=== PATIENT | female | born 1980 | race American Indian/Alaskan Native ===

== ENCOUNTER 2017-10-16 13:12 | Day surgery (SDC) | payer MEDICAID ==
--- NOTE | 2017-10-16 14:24 | Anesthesia Consultation ---
Anesthesia Consult and Med Hx Date of service: 10/16/17 - Airway Anesthetic Teeth Evaluation: Good ROM Head & Neck: Adequate Mental/Hyoid Distance: Adequate Mallampati Class: Class II Intubation Access Assessment: Good - Pulmonary Exam CTA: Yes - Cardiac Exam Cardiac Exam: RRR - Pre-Operative Health Status ASA Pre-Surgery Classification: ASA2 Proposed Anesthetic Plan: MAC - Hematic Hx Anemia: No - Other Systems Hx Alcohol Use: No Hx Obesity: Yes
--- NOTE | 2017-10-16 14:24 | Anesthesia Day of Surgery ---
Anesthesia Day of Surgery - Day of Surgery Patient Examined: Yes Patient H&P Reviewed: Yes Patient is NPO: Yes
[2017-10-16] MEDS ORDERED: DIPRIVAN 10 MG/ML IV ONE ×3 (14:25→14:26)
--- NOTE | 2017-10-16 14:33 | History and Physical Report ---
History of Present Illness Date of examination: 10/16/17 Date of admission: 10/16/2017 Chief complaint: Epigastric pain, gastrointestinal bleeding History of present illness: 37-year-old female who presented history of diffuse abdominal pain, change in bowel habits and nausea and suspicion of gastrointestinal bleeding. Patient now presents for evaluation with an upper endoscopy. Patient has blood in stool. Past History Past Medical History: GERD Past Surgical History: No surgical history Social history: alcohol abuse. denies: smoking Medications and Allergies Allergies Allergy/AdvReac Type Severity Reaction Status Date / Time No Known Allergies Allergy Verified 10/16/17 14:18 Active Meds: Active Medications Sodium Chloride (Nacl 0.9% 1000 Ml) 1,000 mls @ 75 mls/hr IV DIRECT MEHREEN Last Admin: 10/16/17 14:00 Dose: 75 mls/hr Review of Systems All systems: negative Exam - Constitutional Vitals: Temp Pulse Resp BP Pulse Ox 99.0 F 75 12 120/82 100 10/16/17 14:00 10/16/17 14:00 10/16/17 14:00 10/16/17 14:00 10/16/17 14:00 General appearance: Present: no acute distress, well-nourished - EENT Eyes: Present: PERRL ENT: hearing intact, clear oral mucosa - Neck Neck: Present: supple, normal ROM - Respiratory Respiratory effort: normal Respiratory: bilateral: CTA - Cardiovascular Heart Sounds: Present: S1 & S2. Absent: rub, click - Extremities Extremities: pulses symmetrical, No edema Peripheral Pulses: within normal limits - Abdominal General gastrointestinal: Present: soft, non-tender, non-distended, normal bowel sounds Female genitourinary: Present: normal - Integumentary Integumentary: Present: clear, warm, dry - Musculoskeletal Musculoskeletal: gait normal, strength equal bilaterally - Psychiatric Psychiatric: appropriate mood/affect, intact judgment & insight - Neurologic Neurologic: CNII-XII intact, moves all extremities Assessment and Plan Abdominal pain, nausea, suspicion of GI bleed Plan: An upper endoscopy as well as a colonoscopy will be done to evaluate patient. Additional recommendations will be made depending on the endoscopic findings.
[2017-10-16] MEDS ORDERED: NACL 0.9% 1000 ML 1,000 ML IV SCH (15:00)
--- NOTE | 2017-10-16 15:46 | Post Anesthesia Evaluation ---
- Post Anesthesia Evaluation Patient Participated: Yes Airway Patent: Yes Stable Respiratory Function: Yes Temp > 96.8F: Yes Pain Manageable: Yes Adequeate Hydration: Yes Anesthesia Complications: No
--- NOTE | 2017-10-16 16:00 | Operative Report ---
Operative Report Operative Report: Date of procedure: 10/16/2017 Procedure: Colonoscopy with Biopsies. Attending physician: Christophe Akhtar MD Bindery Leadperson: Christophe Akhtar MD Indication: Patient is a 37-year-old female who presents with diffuse abdominal pain and rectal bleeding. A colonoscopy serves to evaluate patient so that treatment may be directed based on the findings. Consent: Informed consent was obtained after advising the patient and family regarding nature of this procedure, its indications, potential benefits as well as possible complications including but not limited to bleeding perforation and adverse reaction to medication, infection as well as other cardiopulmonary complications. An informed written and verbal consent was then obtained after due opportunity was provided for questions and answers. Monitoring: Patient was monitored continuously with pulse oximetry and electrocardiographic recordings as well as blood pressure recordings. Vital signs remained stable throughout this procedure with no untoward events. Preoperative assessment: Patient was assessed immediately prior to this procedure for capacity to tolerate monitored anesthesia care and moderate sedation as well as general anesthesia. Patient's ASA classification is 2, Mallampati class is 2, Hyomental distance is 3. Instrument: [employer] video colonoscope Medications: Propofol given intravenously in divided doses. For details please refer to anesthesia records. Description of procedure: Patient was placed in the left lateral decubitus position after achieving sedation, a digital rectal examination was performed following which the colonoscope was introduced into the anal verge and advanced to the cecum which was identified by the cecal valve, the appendiceal orifice, as well as by the cecal strap and direct transillumination. The terminal ileum was then intubated for a distance of about 15 cm. The colonoscope was subsequently withdrawn with careful inspection of all mucosal surfaces. Patient tolerated this procedure well and was subsequently taken to the recovery room. The following findings were noted. Findings: Patient had multiple ulcers at the ileocecal valve junction, just before entrance into the colon. All ulcers were confined to this area. There was some mucosal edema and erosions seen again in this area. Several biopsies were then obtained from the distal terminal ileum/ileocecal valve for histopathology. The endoscopic significance of these ulcers is not clear. It is not entirely clear if these ulcers are related to taking non-steroidal which patient had taken periodically, or if these are inflammatory in origin. It should be noted however that other than these areas of ulceration in the terminal ileum/ileocecal valve area, the entirety of the examined segments of the terminal ileum otherwise appeared relatively normal. The areas of ulceration with surrounding mucosal edema was very focal and confined to the distal terminal ileum/ileocecal valve junction. The entirety of the colon appeared completely normal. On the retroflex view at the anal verge, patient had prominent internal hemorrhoids. Impression: Ulcers in the distal terminal ileum/ileocecal valve. Normal appearing colon. Internal hemorrhoids. Plan: Follow pathology report and direct additional treatment based on the pathology report. Observe patient clinically. Additional recommendations will be made therefore in clinical follow-up and also on the pathology report findings. High-fiber diet..
--- NOTE | 2017-10-16 16:19 | Discharge Summary ---
Short Stay Discharge Plan Activity: advance as tolerated Weight Bearing Status: Weight Bear as Tolerated Diet: regular Additional Instructions: Post Sedation D/C Instructions When you return home you may resume your regular diet unless otherwise directed. -Go directly home from the hospital and rest quietly. You may resume normal activities tomorrow. -Do NOT drive, return to work, operate any machinery or make any important personal or business decisions today. -Do NOT drink any alcohol or take nerve or sleeping drugs. They add to the effects of the medicine still present in your body.
[2017-10-16 16:24] VITALS: BP 130/80
--- NOTE | 2017-10-16 16:24 | Operative Report ---
Operative Report Operative Report: Date of procedure: 10/16/2017 Procedure: Esophagogastroduodenoscopy with multiple mucosal biopsies Attending physician: Christophe Akhtar MD Barrel Burner: Christophe Akhtar MD Indication: Patient is a 37-year-old female who presented history of abdominal pain predominantly midepigastric and periumbilical with also seated melena. An upper endoscopy is done to evaluate patient so that treatment may be directed based on the findings. Consent: Informed consent was obtained after advising the patient and family regarding nature of this procedure, its indications, potential benefits as well as possible complications including but not limited to bleeding perforation and adverse reaction to medication, infection as well as other cardiopulmonary complications. An informed written and verbal consent was then obtained after due opportunity was provided for questions and answers. Monitoring: Patient was monitored continuously with pulse oximetry and electrocardiographic recordings as well as blood pressure recordings. Vital signs remained stable throughout this procedure with no untoward events. Preoperative assessment: Patient was assessed immediately prior to this procedure for capacity to tolerate monitored anesthesia care and moderate sedation as well as general anesthesia. Patient's ASA classification is 2, Mallampati class is 2, Hyomental distance is 3. Instrument: [employer] video endoscope Medications: Propofol, given intravenously in divided doses. For details please refer to anesthesia records. Description of procedure: Patient was placed in the left lateral decubitus position after achieving sedation, the endoscope was introduced into the esophagus under direct vision. It was then advanced beyond the esophagus into the stomach and then beyond the stomach into the duodenum and to the second portion of the duodenum. It was subsequently withdrawn with careful inspection of all mucosal surfaces with the following findings. Findings: Patient had mild erosive esophagitis involving the distal esophagus. There was a diminutive hiatal hernia seen on entry into stomach. There was erythema and a few erosions seen in the gastric antrum. Biopsies were obtained from the antrum to rule out gastritis. The duodenum was normal to the second portion. Impression: Mild erosive esophagitis. Small hiatal hernia. Mild gastric antral erythema with erosions. Plan: Continue treatment proton pump inhibitors Follow pathology report from the gastric antral biopsies Maintain antireflux measures. These findings may not entirely explain patient's presentation with melena. A colonoscopy is being done to assess patient further.
== END 2017-10-16 13:13 | disposition home or self-care (01) ==
LOC: GIO 13:12
PROVIDERS: ATTEND Internal Medicine Gastroenterology
DX: K92.1 Melena (principal); K63.3 Ulcer of intestine; K64.8 Other hemorrhoids; K20.9 Esophagitis, unspecified; K44.9 Diaphragmatic hernia without obstruction or gangrene; K29.50 Unspecified chronic gastritis without bleeding; E66.9 Obesity, unspecified; Z68.33 Body mass index [BMI] 33.0-33.9, adult
CPT/HCPCS: 43239; 45380; 81025; 88305; 88342; J2704; J7030

== ENCOUNTER 2019-11-25 11:58 | Day surgery (SDC) | payer MEDICAID ==
--- NOTE | 2019-11-25 13:21 | Anesthesia Consultation ---
Anesthesia Consult and Med Hx Date of service: 11/25/19 - Airway Anesthetic Teeth Evaluation: Good ROM Head & Neck: Adequate Mental/Hyoid Distance: Adequate Mallampati Class: Class II Intubation Access Assessment: Probably Good - Pulmonary Exam CTA: Yes - Cardiac Exam Cardiac Exam: RRR - Pre-Operative Health Status ASA Pre-Surgery Classification: ASA2 Proposed Anesthetic Plan: MAC - Hematic Hx Anemia: No - Other Systems Hx Alcohol Use: No Hx Substance Use: Yes (marijuanna) Hx Obesity: Yes
--- NOTE | 2019-11-25 13:22 | Anesthesia Day of Surgery ---
Anesthesia Day of Surgery - Day of Surgery Patient Examined: Yes Patient H&P Reviewed: Yes Patient is NPO: Yes
[2019-11-25] MEDS ORDERED: PROPOFOL 200 MG/20 ML VIAL IV ONE ×2 (13:35→13:36)
[2019-11-25] MEDS ORDERED: LIDOCAINE 2% UROJECT 10 ML JELLY ONE (13:56)
[2019-11-25] MEDS ORDERED: LIDOCAINE (2%) 20 MG/1 ML VIAL 20 ML MDV INFILTRATI ONE (13:58)
[2019-11-25] MEDS ORDERED: LIDOCAINE MPF (2%) 20 MG/1 ML VIAL 5 ML ONE (14:00)
--- NOTE | 2019-11-25 14:10 | Operative Report ---
Operative Report Operative Report: Procedure: Colonoscopy Hemorrhoidal band ligation. Attending physician: Christophe Akhtar MD Argon Tester: Christophe Akhtar MD Indication: Patient is a 39-year-old male who presents with recurrent rectal bleeding and symptomatic internal hemorrhoids. This procedure is done to evaluate patient so that treatment may be directed based on the findings. Consent: Informed consent was obtained after advising the patient and family regarding nature of this procedure, its indications, potential benefits as well as possible complications including but not limited to bleeding perforation and adverse reaction to medication, infection as well as other cardiopulmonary complications. An informed written and verbal consent was then obtained after due opportunity was provided for questions and answers. Monitoring: Patient was monitored continuously with pulse oximetry and electrocardiographic recordings as well as blood pressure recordings. Vital signs remained stable throughout this procedure with no untoward events. Preoperative assessment: Patient was assessed immediately prior to this proce dure for capacity to tolerate monitored anesthesia care and moderate sedation as well as general anesthesia. Patient's ASA classification is 2, Mallampati class is 2, Hyomental distance is 3. Instrument: Olympus video colonoscope CF-HQ 190L. Multiband ligator (Concept Inbox) Medications: Propofol given intravenously in divided doses for details please refer to anesthesia records. Description of procedure: Patient was placed in the left lateral decubitus position after achieving sedation, a digital rectal examination was performed following which the colonoscope was introduced into the anal verge and advanced to the cecum which was identified by the cecal valve, the appendiceal orifice, as well as by the cecal strap and direct transillumination. The colonoscope was subsequently withdrawn with careful inspection of all mucosal surfaces. Patient tolerated this procedure well and was subsequently taken to the recovery room. The following findings were noted. Findings: The cecum was normal. Descending colon was normal. Transverse colon was normal. Descending colon was normal. Sigmoid colon was normal. On the retroflex view at the anal verge patient had prominent friable internal hemorrhoids. An upper endoscope was preloaded with the multiband ligator reintroduced into the rectum. 5% lidocaine gel was applied in the rectum. In the retroflex view, 4 bands were applied over the hemorrhoids above the dentate line. Patient tolerated procedure well no untoward events. Impression: Prominent internal hemorrhoids status post hemorrhoidal band ligation. Plan: Daily sitz baths. High-fiber diet. Patient to apply lidocaine ointment 5% per rectum every 6 hours as needed. Anusol HC suppositories per rectum every night. Patient to use stool softeners as needed. Miralax 17 g in 8 ounce glass of water has been prescribed. Tramadol 50 mg every 6 hours as needed for pain. Patient is scheduled for further outpatient follow-up. Patients adviced that if she developes any ontoward symptoms to call the office immediately.
--- NOTE | 2019-11-25 14:13 | Discharge Summary ---
Short Stay Discharge Plan Activity: advance as tolerated Weight Bearing Status: Weight Bear as Tolerated Diet: regular Follow up with: PRIMARY CARE, [Primary Care Provider] - 7 Days
[2019-11-25] MEDS ORDERED: fentaNYL 100 MCG/2 ML INJ ONE (14:20)
[2019-11-25] MEDS ORDERED: HYDROmorphone 1 MG/1 ML INJ IV PRN (14:27)
[2019-11-25 15:08] VITALS: BP 109/68
--- NOTE | 2019-11-25 17:29 | Post Anesthesia Evaluation ---
- Post Anesthesia Evaluation Patient Participated: Yes Airway Patent: Yes Stable Respiratory Function: Yes Nausea/Vomiting: No Temp > 96.8F: Yes Pain Manageable: Yes Adequeate Hydration: Yes Anesthesia Complications: No Block Receding Appropriately: Not Applicable Patient on Ventilator: No
== END 2019-11-25 11:59 | disposition home or self-care (01) ==
LOC: GIO 11:58
PROVIDERS: ATTEND Internal Medicine Gastroenterology
DX: K92.2 Gastrointestinal hemorrhage, unspecified (principal); R10.84 Generalized abdominal pain; K64.8 Other hemorrhoids; E66.9 Obesity, unspecified; F41.9 Anxiety disorder, unspecified; Z68.29 Body mass index [BMI] 29.0-29.9, adult; Z98.890 Other specified postprocedural states
CPT/HCPCS: 45398; 81025; J1170; J2704; J3010

== ENCOUNTER 2021-01-02 11:31 | Outpatient (CLI) | payer MEDICAID ==
[2021-01-02 11:55] VITALS: BP 109/55
[2021-01-02] MEDS ORDERED: LACTATED RINGERS 500 ML IV ONE (12:15)
--- NOTE | 2021-01-02 14:29 | Ultrasound Report ---
US OB limited INDICATION: NO MOVEMENT X 24 HOURS. TECHNIQUE: Transabdominal. COMPARISON: None available. FINDINGS: There is a single intrauterine . Heart Rate: 146 beats per minute. position: Variable Amniotic Fluid Volume: normal Amniotic Fluid Index (RAYMUNDO) in cm (if calculated): 16.5. IMPRESSION: 1. heart tones are present. Amniotic fluid is normal. Signer Name: Allan Russell MD Signed: 01/02/2021 2:24 PM Workstation Name: [id number]
== END 2021-01-02 13:45 | disposition home or self-care (01) ==
LOC: TRG 11:31 → APU 11:33 → TRG 13:45
PROVIDERS: ATTEND Obstetrics & Gynecology
DX: O09.892 Supervision of other high risk pregnancies, second trimester (principal); Z3A.24 24 weeks gestation of pregnancy
CPT/HCPCS: 59025; 76815

== ENCOUNTER 2022-03-31 06:30 | Emergency (ER) | payer MEDICAID ==
--- NOTE | 2022-03-31 10:00 | Emergency Department Report ---
- General Chief Complaint: Upper Respiratory Infection Stated Complaint: FLU SX Source: patient, EMS Mode of arrival: Stretcher Limitations: No Limitations - History of Present Illness Initial Comments: 41-year-old female presents to the ED complaining of sudden onset sore throat, body ache, nasal discharge, and unable to eat x2 days. Patient complains difficult swallowing with drooling. Patient states that pain started after taking a trip to [place]. Patient denies being vaccination to the COVID- vaccine. Patient she has been unable to sleep due to pain. Patient states she just feels very tired and lethargic. Patient denies any cough, shortness of breath,chest pain,or abdominal pain at present time. Patient is alert and oriented x3. No acute distress noted. Patient has ill appearance noted. Patient states pain is a 10 out of 10. MD Complaint: fever, sore throat, nasal congestion Onset/Timin -: days(s) Severity: mild Severity scale (0 -10): 8 Quality: aching Consistency: intermittent Improves With: nothing Worsens With: nothing Associated Symptoms: fever, chills - Related Data Previous Rx's Medication Instructions Recorded Last Taken Type Ibuprofen [Motrin 400 MG tab] 400 mg PO Q8H #20 tablet 12/13/21 Unknown Rx dilTIAZem CD [Cardizem CD] 180 mg PO QDAY #30 capsule 12/13/21 Unknown Rx Allergies Allergy/AdvReac Type Severity Reaction Status Date / Time No Known Allergies Allergy Verified 12/12/21 14:50 ED Review of Systems ROS: Stated complaint: FLU SX Other details as noted in HPI Constitutional: fever, malaise. denies: chills Eyes: denies: eye pain, eye discharge, vision change ENT: throat pain. denies: ear pain Respiratory: denies: cough, shortness of breath, wheezing Cardiovascular: denies: chest pain, palpitations Endocrine: no symptoms reported Gastrointestinal: denies: abdominal pain, nausea, diarrhea Genitourinary: denies: urgency, dysuria, discharge Musculoskeletal: denies: back pain, joint swelling, arthralgia Skin: denies: rash, lesions Neurological: denies: headache, weakness, paresthesias Psychiatric: denies: anxiety, depression Hematological/Lymphatic: denies: easy bleeding, easy bruising ED Past Medical Hx - Past Medical History Previous Medical History?: Yes Hx Hypertension: Yes Hx Diabetes: No Hx Deep Vein Thrombosis: No Hx Renal Disease: No Hx Sickle Cell Disease: No Hx Seizures: No Hx Asthma: No Hx HIV: No Additional medical history: A-fib - Surgical History Past Surgical History?: No - Social History Smoking Status: Never Smoker Substance Use Type: Marijuana - Medications Home Medications: Home Medications Medication Instructions Recorded Confirmed Last Taken Type Ibuprofen [Motrin 400 MG tab] 400 mg PO Q8H #20 tablet 12/13/21 Unknown Rx dilTIAZem CD [Cardizem CD] 180 mg PO QDAY #30 capsule 12/13/21 Unknown Rx ED Physical Exam - General Limitations: No Limitations General appearance: alert, in no apparent distress - Head Head exam: Present: atraumatic, normocephalic - Eye Eye exam: Present: normal appearance - ENT ENT exam: Present: mucous membranes moist - Expanded ENT Exam Expanded Mouth exam: Present: drooling, trismus Throat exam: Positive: tonsillar erythema, tonsillomegaly, tonsillar exudate - Neck Neck exam: Present: normal inspection - Respiratory Respiratory exam: Present: normal lung sounds bilaterally. Absent: respiratory distress - Cardiovascular Cardiovascular Exam: Present: regular rate, normal rhythm. Absent: systolic murmur, diastolic murmur, rubs, gallop - GI/Abdominal GI/Abdominal exam: Present: soft, normal bowel sounds - Extremities Exam Extremities exam: Present: normal inspection - Back Exam Back exam: Present: normal inspection - Neurological Exam Neurological exam: Present: alert, oriented X3 - Psychiatric Psychiatric exam: Present: normal affect, normal mood - Skin Skin exam: Present: warm, dry, intact, normal color. Absent: rash ED Course Vital Signs 03/31/22 03/31/22 03/31/22 06:47 13:03 14:57 Temperature 98.8 F Pulse Rate 95 H 88 83 Respiratory 18 18 18 Rate Blood Pressure 112/72 Blood Pressure 132/83 124/67 [Right] O2 Sat by Pulse 99 99 99 Oximetry 03/31/22 19:17 Temperature Pulse Rate 78 Respiratory 18 Rate Blood Pressure Blood Pressure 126/76 [Right] O2 Sat by Pulse 100 Oximetry ED Medical Decision Making - Lab Data Result diagrams: 03/31/22 10:16 03/31/22 12:14 - Radiology Data [facility] [address] [place] [address] Cat Scan Report Signed Patient: MILTON HUERTA MR#: [id number] : 1980 Acct:[id number] Age/Sex: 41 / F ADM Date: 03/31/22 Loc: ED Attending Dr: Ordering Physician: NORMA ESTRELLA Date of Service: 03/31/22 Procedure(s): CT neck w con Accession Number(s): [id number] cc: NORMA ESTRELLA CT neck w con HISTORY: tonsillar absess COMPARISON: None. TECHNIQUE: CT of the neck is performed. All CT scans at this location are per formed using CT dose reduction for ALARA by means of automated exposure control. FINDINGS: Skull Base: No significant abnormality. Nasopharynx, oropharynx, hypopharynx: No significant abnormality. No mass identified.. Tonsils: [place] tonsillar enlargement with suspected 1.7 cm right peritonsillar abscess. Airway: Patent and without significant abnormality. Salivary glands: No significant abnormality. Thyroid:No significant abnormality. Lymphatics: No lymphadenopathy. Vasculature: No significant abnormality. Osseous Structures: Mild spondylosis. No acute abnormality Additional findings: None. IMPRESSION: 1. [place] tonsillitis with suspected 1.7 cm right peritonsillar abscess. Signer Name: Allan Russell MD Signed: 03/31/2022 2:15 PM Workstation Name: [id number] Transcribed By: Dictated By: Allan Russell MD Electronically Authenticated By: Allan Russell MD Signed Date/Time: 03/31/22 141 DD/ 141 TD/TT: - Medical Decision Making 41-year-old female presents to the ED complaining of sudden onset sore throat, body ache, nasal discharge, and unable to eat x2 days. Patient complains difficult swallowing with drooling. Patient states that pain started after taking a trip to [place]. Patient denies being vaccination to the COVID- vaccine. Patient she has been unable to sleep due to pain. Patient states she just feels very tired and lethargic. Patient denies any cough, shortness of breath,chest pain,or abdominal pain at present time. Patient had a tab for the drooling. She is able to maintain airway on her own patient is alert and oriented x3. No acute distress noted. Patient has ill appearance noted. Patient states pain is a 10 out of 10. Physical examination patient has mild trismus with drooling noted. Upon examination of the mouth was partially able to see the tonsil exudate on the right tonsil. Was able to obtain a rapid strep. Rapid strep a positive. CT of the neck with contrast shows right tonsil peritoneal abscess 1.7 cm. Consulted [facility]. spoke with Dr. Grant whom advised to have the patient transferred to [facility] via ambulance to Ed for drainage of [employer]. Patient accepted by Dr. Lamas at [facility] ED and report given. Critical care attestation.: If time is entered above; I have spent that time in minutes in the direct care of this critically ill patient, excluding procedure time. ED Disposition Clinical Impression: Peritonsillar abscess Disposition: 02 SHORT TERM HOSPITAL Is pt being admited?: No Does the pt Need Aspirin: No Condition: Stable Referrals: PRIMARY CARE, [Primary Care Provider] - 3-5 Days
[2022-03-31] MEDS ORDERED: MORPHINE 4 MG/1 ML INJ IV ONE ×2 (10:34→15:18)
[2022-03-31] MEDS ORDERED: SODIUM CHLORIDE 0.9% 1000 ML 1,000 ML IV ONE (10:34)
[2022-03-31 10:41] LABS: Basophils % (Auto) 0.4 % (0.0-1.8); Eosinophils # (Auto) 0.2 K/mm3 (0.0-0.4); Eosinophils % (Auto) 1.7 % (0.0-4.3); Hematocrit 36.4 % (30.3-42.9); Hemoglobin 11.5 gm/dl (10.1-14.3); Lymphocytes # (Auto) 1.1 K/mm3 (1.2-5.4); Lymphocytes % (Auto) 7.7 % (13.4-35.0); Mean Corpuscular HGB Conc 32 % (30-34); Mean Corpuscular Volume 73 fl (79-97); Monocytes # (Auto) 1.1 K/mm3 (0.0-0.8); Monocytes % (Auto) 7.9 % (0.0-7.3); Platelet Count 290 K/mm3 (140-440); Red Cell Distribution Width 15.4 % (13.2-15.2)
[2022-03-31 11:12] LABS: Alanine Aminotransferase TNR units/L (7-56); Albumin TNR g/dL (3.9-5); BUN/Creatinine Ratio TNR; Blood Urea Nitrogen TNR mg/dL (7-17); Calcium TNR mg/dL (8.4-10.2)
[2022-03-31 11:13] LABS: Hemolysis Index TNR
[2022-03-31] MEDS ORDERED: dexAMETHasone 20 MG/5 ML VIAL IV ONE (12:20)
[2022-03-31] MEDS ORDERED: KETOROLAC 30 MG/1 ML INJ IV ONE (12:20)
[2022-03-31] MEDS ORDERED: CLINDAMYCIN 600 MG/50 mL 600 MG/50 ML BAG IV ONE (12:21)
[2022-03-31 13:13] LABS: Alanine Aminotransferase 30 units/L (7-56); Albumin 3.9 g/dL (3.9-5); BUN/Creatinine Ratio 8; Blood Urea Nitrogen 6 mg/dL (7-17); Hemolysis Index 15
--- NOTE | 2022-03-31 14:20 | Cat Scan Report ---
CT neck w con HISTORY: tonsillar absess COMPARISON: None. TECHNIQUE: CT of the neck is performed. All CT scans at this location are performed using CT dose red uction for ALARA by means of automated exposure control. FINDINGS: Skull Base: No significant abnormality. Nasopharynx, oropharynx, hypopharynx: No significant abnormality. No mass identified.. Tonsils: [place] tonsillar enlargement with suspected 1.7 cm right peritonsillar abscess. Airway: Patent and without significant abnormality. Salivary glands: No significant abnormality. Thyroid:No significant abnormality. Lymphatics: No lymphadenopathy. Vasculature: No significant abnormality. Osseous Structures: Mild spondylosis. No acute abnormality Additional findings: None. IMPRESSION: 1. [place] tonsillitis with suspected 1.7 cm right peritonsillar abscess. Signer Name: Allan Russell MD Signed: 03/31/2022 2:15 PM Workstation Name: [id number]
[2022-03-31 19:18] VITALS: BP 126/76
== END 2022-03-31 19:19 | disposition short-term general hospital (02) ==
LOC: ED 06:30
DX: J36 Peritonsillar abscess (principal); I10 Essential (primary) hypertension; I48.91 Unspecified atrial fibrillation
CPT/HCPCS: 36415; 70491; 80053; 84703; 85025; 87430; 96361; 96365; 96375; 96376; 99285; J1100; J1885; J2270; J7030; J7502; Q9967

== ENCOUNTER 2022-05-07 18:26 | Emergency (ER) | payer MEDICAID ==
[2022-05-07 18:35] VITALS: BP 124/84
== END 2022-05-09 00:50 | disposition left against medical advice (07) ==
LOC: ED 18:26
DX: R10.9 Unspecified abdominal pain (principal); Z53.21 Procedure and treatment not carried out due to patient leaving prior to being seen by health care provider

== ENCOUNTER 2022-05-08 12:48 | Emergency (ER) | payer MEDICAID ==
[2022-05-08 21:41] LABS: Basophils % (Auto) 0.2 % (0.0-1.8); Eosinophils # (Auto) 0.1 K/mm3 (0.0-0.4); Eosinophils % (Auto) 0.4 % (0.0-4.3); Hematocrit 34.4 % (30.3-42.9); Hemoglobin 10.9 gm/dl (10.1-14.3); Lymphocytes # (Auto) 1.9 K/mm3 (1.2-5.4); Lymphocytes % (Auto) 13.8 % (13.4-35.0); Mean Corpuscular HGB Conc 32 % (30-34); Mean Corpuscular Volume 74 fl (79-97); Monocytes # (Auto) 0.7 K/mm3 (0.0-0.8); Monocytes % (Auto) 5.1 % (0.0-7.3); Platelet Count 276 K/mm3 (140-440); Red Blood Count 4.66 M/mm3 (3.65-5.03); Red Cell Distribution Width 16.4 % (13.2-15.2)
[2022-05-08 21:50] LABS: Alanine Aminotransferase 8 units/L (7-56); Albumin 3.3 g/dL (3.9-5); BUN/Creatinine Ratio 6; Blood Urea Nitrogen 5 mg/dL (7-17); Hemolysis Index 2
--- NOTE | 2022-05-08 22:56 | Cat Scan Report ---
CT ABDOMEN AND PELVIS WITH CONTRAST INDICATION / CLINICAL INFORMATION: morbid obesity, IUD, c/o diffuse abdominal pain. TECHNIQUE: Axial CT images were obtained through the abdomen and pelvis after Omnipaque 300, 100 cc I V contrast. All CT scans at this location are performed using CT dose reduction for ALARA by means o f automated exposure control. COMPARISON: None available. FINDINGS: LOWER CHEST: No significant abnormality. LIVER: No significant abnormality. GALLBLADDER: No significant abnormality. BILE DUCTS: No significant abnormality. PANCREAS: No significant abnormality. SPLEEN: No significant abnormality. ADRENALS: No significant abnormality. RIGHT KIDNEY / URETER: No significant abnormality. LEFT KIDNEY / URETER: No significant abnormality. STOMACH / SMALL BOWEL: No significant abnormality. COLON: No significant abnormality. APPENDIX: No significant abnormality. PERITONEUM: No free fluid. No free air. No fluid collection. LYMPH NODES: No significant adenopathy. VASCULAR STRUCTURES: No significant abnormality. URINARY BLADDER: No significant abnormality. REPRODUCTIVE ORGANS: Multiple uterine fibroids. IUD. This has an unusual configuration with the T por tion directed in an AP direction. ADDITIONAL FINDINGS: Bilateral gluteal injections. SKELETAL SYSTEM: No significant abnormality. IMPRESSION: 1. Negative for obstruction or localized inflammation. 2. IUD is likely malpositioned. 3. Fibroid uterus. Signer Name: Bj Perez MD Signed: 05/08/2022 10:51 PM Workstation Name: [id number]
--- NOTE | 2022-05-08 22:57 | Emergency Department Report ---
ED Abdominal Pain HPI - General Chief Complaint: Abdominal Pain Stated Complaint: ABDOMINAL PAIN PUI?: No Time Seen by Provider: 05/08/22 21:42 Source: patient, EMS Mode of arrival: Stretcher Limitations: No Limitations - History of Present Illness Initial Comments: 41-year-old morbidly obese female with multiple medical comorbidities presents for evaluation of abdominal pain. Patient reports 2 to 3 days of persistent diffuse cramping abdominal pain which radiates throughout her entire abdomen. Pain is aggravated by p.o. intake and touch. There is no alleviating factors. She reports nausea but no vomiting fevers or chills. Last bowel movement was while she was here in the ER she states it was normal. No melena hematochezia or hematemesis. She states she is not taking any medication for her symptoms. No prior history of similar symptoms. Surgical history to her abdomen is significant for x1, liposuction, and removal of "fibroid cyst." Patient reports a history of having uterine fibroids and she states she is called her tip stretcher multiple times over the past week and has not received a return call. She reports having an indwelling IUD which she is requesting being taken out. Pain 10 out of 10 -: days(s) (3) Location: diffuse Radiation: LUQ, RUQ, LLQ, RLQ, epigastric, suprapubic Migration to: no migration Severity: severe Severity scale (0 -10): 10 Quality: cramping, aching, fullness, dull Consistency: constant Improves With: nothing Worsens With: movement Context: other (pt denies) Associated Symptoms: nausea. denies: vomiting, diarrhea, fever, chills, constipation, dysuria, hematemesis, hematochezia, melena, hematuria, anorexia, syncope - Related Data Previous Rx's Medication Instructions Recorded Last Taken Type Ibuprofen [Motrin 400 MG tab] 400 mg PO Q8H #20 tablet 12/13/21 Unknown Rx dilTIAZem CD [Cardizem CD] 180 mg PO QDAY #30 capsule 12/13/21 Unknown Rx Ibuprofen [Motrin 800 MG tab] 800 mg PO Q8HR PRN 7 Days #21 05/09/22 Unknown Rx tablet Ondansetron [Zofran Odt] 4 mg PO Q8HR 3 Days #12 tab.rapdis 05/09/22 Unknown Rx traMADoL [Ultram 50 MG tab] 50 mg PO Q6HR PRN 2 Days #8 tablet 05/09/22 Unknown Rx Allergies Allergy/AdvReac Type Severity Reaction Status Date / Time No Known Allergies Allergy Verified 05/08/22 13:02 ED Review of Systems ROS: Stated complaint: ABDOMINAL PAIN Other details as noted in HPI Comment: All other systems reviewed and negative Constitutional: no symptoms reported Eyes: as per HPI ENT: as per HPI Respiratory: no symptoms reported Cardiovascular: denies: chest pain, palpitations, dyspnea on exertion, orthopnea, edema, syncope, paroxysmal nocturnal dyspnea, other Endocrine: denies: no symptoms reported Gastrointestinal: abdominal pain, nausea. denies: vomiting, diarrhea, constipation, hematemesis, melena Genitourinary: abnormal menses. denies: as per HPI, urgency, dysuria, frequency, hematuria, discharge, dyspareunia, other Musculoskeletal: denies: back pain Skin: denies: rash, lesions, change in color, change in hair/nails, pruritus Neurological: denies: headache, weakness, numbness, paresthesias, confusion, abnormal gait Psychiatric: denies: anxiety, depression, auditory hallucinations, visual hallucinations, homicidal thoughts Hematological/Lymphatic: denies: easy bleeding, easy bruising, swollen glands ED Past Medical Hx - Past Medical History Hx Hypertension: Yes Hx Diabetes: No Hx Deep Vein Thrombosis: No Hx Renal Disease: No Hx Sickle Cell Disease: No Hx Seizures: No Hx Asthma: No Hx HIV: No Additional medical history: A-fib - Surgical History Past Surgical History?: Yes - Social History Smoking Status: Current Every Day Smoker Substance Use Type: Alcohol - Medications Home Medications: Home Medications Medication Instructions Recorded Confirmed Last Taken Type Ibuprofen [Motrin 400 MG tab] 400 mg PO Q8H #20 tablet 12/13/21 Unknown Rx dilTIAZem CD [Cardizem CD] 180 mg PO QDAY #30 capsule 12/13/21 Unknown Rx Ibuprofen [Motrin 800 MG tab] 800 mg PO Q8HR PRN 7 Days #21 05/09/22 Unknown Rx tablet Ondansetron [Zofran Odt] 4 mg PO Q8HR 3 Days #12 tab.rapdis 05/09/22 Unknown Rx traMADoL [Ultram 50 MG tab] 50 mg PO Q6HR PRN 2 Days #8 tablet 05/09/22 Unknown Rx ED Physical Exam - General Limitations: No Limitations General appearance: alert, in no apparent distress - Head Head exam: Present: atraumatic, normocephalic, normal inspection - Eye Eye exam: Present: normal appearance, PERRL, EOMI. Absent: scleral icterus, conjunctival injection, nystagmus, periorbital swelling, periorbital tenderness, other - ENT ENT exam: Present: normal exam, normal orophraynx, mucous membranes moist, TM's normal bilaterally - Neck Neck exam: Present: normal inspection, full ROM. Absent: tenderness, meningismus, lymphadenopathy, thyromegaly - Respiratory Respiratory exam: Present: normal lung sounds bilaterally. Absent: respiratory distress, wheezes, rales, chest wall tenderness, accessory muscle use, decreased breath sounds, prolonged expiratory - Cardiovascular Cardiovascular Exam: Present: regular rate, normal rhythm, normal heart sounds. Absent: bradycardia, tachycardia, irregular rhythm, systolic murmur, diastolic murmur, rubs, clicks, JVD, S3, S4 - GI/Abdominal GI/Abdominal exam: Present: soft, distended, tenderness, normal bowel sounds (Diffuse tenderness to palpation on examination) - Extremities Exam Extremities exam: Present: normal inspection, full ROM, normal capillary refill. Absent: tenderness, pedal edema, joint swelling, calf tenderness - Back Exam Back exam: Present: normal inspection, full ROM. Absent: tenderness, CVA tenderness (L), muscle spasm, paraspinal tenderness, rash noted - Neurological Exam Neurological exam: Present: altered, oriented X3, CN II-XII intact, normal gait, reflexes normal - Psychiatric Psychiatric exam: Present: normal affect, normal mood - Skin Skin exam: Present: warm, dry, intact, normal color ED Course Vital Signs 05/08/22 05/08/22 05/08/22 12:49 19:41 19:47 Temperature 98.4 F Pulse Rate 118 H 103 H Respiratory 18 19 Rate Blood Pressure 140/90 119/75 [Left] O2 Sat by Pulse 118 H 98 96 Oximetry 05/09/22 00:11 Temperature Pulse Rate 89 Respiratory 16 Rate Blood Pressure 123/86 [Left] O2 Sat by Pulse 99 Oximetry - Reevaluation(s) Reevaluation #1: 05/08/22 22:56 pt reassessed; awaiting ct findings; comfortable appearing; she reports improvement in pain ED Medical Decision Making - Lab Data Result diagrams: 05/08/22 21:14 05/08/22 20:34 - Medical Decision Making 41-year-old obese female with multiple medical comorbidities brought in for evaluation abdominal pain and nausea. Vital signs stable. Labs reviewed. Diagnostic imaging results reviewed. Patient has mild leukocytosis and pyuria and evidence of budding yeast. CT scan and pelvis results reviewed. Patient given analgesics here with good effect. She is advised to follow-up with her private tip stretcher for reassessment and further management. Patient advised that she will need to discuss the malpositioned IUD as well as her uterine fibroids with her tip stretcher. No further emergent work-up warranted at this time. Patient stable for discharge to home. Prior to discharge patient was given strict verbal and written return precautions. She verbalized understanding agreement plan of care Critical care attestation.: If time is entered above; I have spent that time in minutes in the direct care of this critically ill patient, excluding procedure time. ED Disposition Clinical Impression: Fibroids, IUD migration, Yeast infection Disposition: 01 HOME / SELF CARE / HOMELESS Is pt being admited?: No Does the pt Need Aspirin: No Condition: Stable Instructions: Vaginal Yeast Infection, Adult, Uterine Fibroids, [id number], Abdominal Pain (ED) Additional Instructions: Please continue to call your tip stretcher to schedule immediate follow-up appointment for reassessment. On your evaluation today you were found to have a yeast infection. Your CAT scan also shows that your IUD has shifted and this will likely need to be removed by your tip stretcher. You also have multiple fibroids in your uterus and these fibroids are likely the cause of your pain. Take ibuprofen as needed for pain. You may alternate ibuprofen with acetaminophen for additional pain management. If your pain is not improved, please take tramadol for additional pain management. And you may take Zofran as needed for nausea. Continue to observe your symptoms very carefully. Return to the nearest emergency department soon as possible if you develop severe or worsening abdominal pain, inability tolerate liquids or solids, any fever of 100.4 Fahrenheit or higher, or if any other new worrisome symptoms develop Prescriptions: Ibuprofen [Motrin 800 MG tab] 800 mg PO Q8HR PRN 7 Days #21 tablet PRN Reason: Pain , Severe (7-10) traMADoL [Ultram 50 MG tab] 50 mg PO Q6HR PRN 2 Days #8 tablet PRN Reason: Pain Ondansetron [Zofran Odt] 4 mg PO Q8HR 3 Days #12 tab.[email or web address] Referrals: PRIMARY CARE, [Primary Care Provider] - 3-5 Days
[2022-05-08] MEDS ORDERED: KETOROLAC 30 MG/1 ML INJ IV ONE (23:41)
[2022-05-09 00:12] VITALS: BP 123/86
[2022-05-09 01:46] LABS: Bilirubin,Urine NEG (Negative); Blood,Urine LG (Negative); Color,Urine Amber (Yellow); Urobilinogen,Urine < 2.0 mg/dL (<2.0)
[2022-05-09 01:49] LABS: Mucus,Urine 2+ /HPF
[2022-05-09] MEDS ORDERED: oxyCODONE /ACETAMINOPHEN 5-325MG TAB PO ONE (02:27)
[2022-05-09] MEDS ORDERED: FLUCONAZOLE 200 MG TAB PO ONE (02:45)
== END 2022-05-09 03:52 | disposition home or self-care (01) ==
LOC: ED 12:48
DX: T83.89XA Other specified complication of genitourinary prosthetic devices, implants and grafts, initial encounter (principal); B37.9 Candidiasis, unspecified; D25.9 Leiomyoma of uterus, unspecified; I10 Essential (primary) hypertension; I48.91 Unspecified atrial fibrillation; Z98.890 Other specified postprocedural states; F17.290 Nicotine dependence, other tobacco product, uncomplicated; Y84.8 Other medical procedures as the cause of abnormal reaction of the patient, or of later complication, without mention of misadventure at the time of the procedure; Y92.89 Other specified places as the place of occurrence of the external cause
CPT/HCPCS: 36415; 74177; 80053; 81001; 82962; 83690; 84702; 84703; 85025; 87086; 96374; 99285; J1885; Q9967